=== PATIENT | female | born 1980 | race Caucasian/White ===

== ENCOUNTER 2024-09-21 17:57 | Emergency (ER) | payer OTHER, SELFPAY ==
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
[2024-09-21 18:04] VITALS: BP 126/80; PULSE 90; O2SAT 98
[2024-09-21 18:30] VITALS: BP 121/42; PULSE 74; RESP 18; TEMP 36.7; O2SAT 99; BMI 29.8
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
[2024-09-21 18:57] VITALS: BP 128/77; PULSE 69; RESP 16; TEMP 36.3; O2SAT 98
[2024-09-21 20:59] VITALS: BP 119/70; PULSE 68; RESP 16; TEMP 36.2; O2SAT 97
[2024-09-21 21:51] VITALS: BP 119/70; PULSE 68; RESP 16; TEMP 36.2; O2SAT 97
== END 2024-09-21 21:52 | disposition home or self-care (01) ==
PROVIDERS: Emergency Provider Emergency Medicine
DX: S06.0X0A Concussion without loss of consciousness, initial encounter (principal); M54.2 Cervicalgia; R51.9 Headache, unspecified; V43.62XA Car passenger injured in collision with other type car in traffic accident, initial encounter; Y93.89 Activity, other specified; Y92.488 Other paved roadways as the place of occurrence of the external cause; Y99.8 Other external cause status
CPT/HCPCS: 70450; 72125; 99284